=== PATIENT | female | born 1970 | race Caucasian/White ===

== ENCOUNTER 2022-02-26 11:22 | Emergency (ER) | payer OTHER, SELFPAY ==
[2022-02-26 11:36] VITALS: BP 161/91; PULSE 73; RESP 14; TEMP 37.1; O2SAT 100
--- NOTE | 2022-02-26 11:45 | ED.FEMALEGU ---
HPI - Female Genitourinary General Chief complaint: Urogenital-Female Stated complaint: poss uti/bladder infect Time Seen by Provider: 02/26/22 11:45 Source: patient and RN notes reviewed Mode of arrival: ambulatory Limitations: no limitations History of Present Illness HPI Narrative: 51-year-old female presented for complaint of urinary frequency, suprapubic pressure, urgency. Onset this morning. She states she gets about 2 UTIs per year. She took Azo this morning. States she is not drinking much water. She denies nausea, vomiting, abdominal pain, flank pain, fevers or chills. Related Data Allergies Allergy/AdvReac Type Severity Reaction Status Date / Time codeine Allergy Severe Swelling Verified 02/26/22 11:44 of Lip/Tongue/Throat Review of Systems Review of Systems: CONSTITUTIONAL: Denies body aches, fever, chills, or sweats. CARDIOVASCULAR: Denies chest pain, palpitations, or edema. RESPIRATORY: Denies cough or dyspnea. GASTROINTESTINAL: Denies abdominal pain, nausea, vomiting, or diarrhea. GENITOURINARY: Reports dysuria, frequency, urgency, denies hematuria, flank pain SKIN: Denies rash, itching, or wounds. MUSCULOSKELETAL: Denies back pain or myalgia. PMFSH Comments At time of signature, I have reviewed and agree with nursing past medical, surgical, social and family history unless otherwise noted. Please see nursing chart for further information. There is no relevant family history pertinent to the presenting complaint Exam Narrative: GENERAL: Well-appearing and in no acute distress. CHEST: No respiratory distress. Clear to auscultation. HEART: Regular rate and rhythm. ABDOMEN: Soft, nontender, nondistended, normal active bowel sounds. No CVA tenderness MUSCULOSKELETAL: No bony tenderness. SKIN: Warm, dry, no rash. NEURO: No focal deficits. Alert and oriented x3. Gait steady. PSYCH: Normal affect. No signs of depression or anxiety. Course Course Emergency Course: Patient is aware of diagnosis, understands and agrees to treatment plan. Anticipatory guidance given. Patient agrees to follow-up as directed and is aware of reasons to seek care at the emergency department. Portions of this record may have been created with voice recognition software Level of Care: Express Care Visit Vital Signs Vital signs: Vital Signs Temperature 98.8 F 02/26/22 11:36 Pulse Rate 73 02/26/22 11:36 Respiratory Rate 14 02/26/22 11:36 Blood Pressure 161/91 H 02/26/22 11:36 Pulse Oximetry 100 02/26/22 11:36 Oxygen Delivery Room Air 02/26/22 11:36 Temperature 98.8 F 02/26/22 11:36 Pulse Rate 73 02/26/22 11:36 Respiratory Rate 14 02/26/22 11:36 Blood Pressure 161/91 H 02/26/22 11:36 Pulse Oximetry 100 02/26/22 11:36 Oxygen Delivery Room Air 02/26/22 11:36 Reviewed MDM - Female Genitourinary MDM Narrative Medical decision making narrative: urine reviewed with pt, abx prescribed. Stable condition and appropriate for outpt treatment. Differential Diagnosis Differential diagnosis: Likely urinary tract infection and cystitis Lab Data Labs: Urine Glucose Negative Reference Range: Negative Urine Bilirubin Negative Reference Range: Negative Urine Ketone Negative Reference Range: Negative Urine Specific [place] 1.020 Reference Range:1.001-1.035 Urine Blood 1+ Reference Range: Negative * * Urine pH 7.0 Reference Range: 5.0-9.0 Urine Protein Negative *
== END 2022-02-26 11:55 | disposition home or self-care (01) ==
PROVIDERS: Emergency Provider Nurse Practitioner Family
DX: N39.0 Urinary tract infection, site not specified (principal)
CPT/HCPCS: 81003; 87077; 87086; 87186; 99203; G0463

== ENCOUNTER 2022-03-26 19:09 | Emergency (ER) | payer OTHER, SELFPAY ==
[2022-03-26 19:17] VITALS: BP 158/106; PULSE 80; RESP 20; TEMP 37.3; O2SAT 100
--- NOTE | 2022-03-26 19:19 | ED.FEMALEGU ---
HPI - Female Genitourinary General Stated complaint: Poss uti Time Seen by Provider: 03/26/22 19:22 Source: patient and RN notes reviewed Mode of arrival: ambulatory Limitations: no limitations History of Present Illness HPI Narrative: 51-year-old female presents with concern for urinary tract infection. She reports this afternoon she began having sudden dysuria, frequency and urgency. She reports she took Azo this afternoon. She denies fever, body aches, chills, sweats, abdominal pain, nausea, vomiting. MD elicited complaint: UTI Related Data Allergies Allergy/AdvReac Type Severity Reaction Status Date / Time codeine Allergy Severe Swelling Verified 03/26/22 19:17 of Lip/Tongue/Throat Review of Systems Review of Systems: CONSTITUTIONAL: Denies malaise, chills, sweats, or fever. CARDIOVASCULAR: Denies chest pain, palpitations, or edema. RESPIRATORY: Denies cough or dyspnea. GASTROINTESTINAL: Denies abdominal pain, nausea, vomiting, diarrhea GENITOURINARY: Reports dysuria, frequency, urgency. Denies suprapubic pressure. Denies flank pain or hematuria. SKIN: Denies rash or itching. MUSCULOSKELETAL: Denies back pain or myalgia. All systems reviewed & are unremarkable except as noted in HPI and below PMFSH Comments At time of signature, agree with nursing past medical, surgical, social and family history. There is no relevant family history pertinent to the presenting complaint Exam Narrative: GENERAL: Well-appearing, well-nourished, and in no acute distress. HEAD: Normocephalic. EYES: PERRLA, conjunctivae clear. NECK: Supple. No lymphadenopathy CHEST: Clear to auscultation. No respiratory distress. HEART: Regular rate and rhythm. ABDOMEN: Soft, nontender upon palpation, nondistended, normal active bowel sounds, no palpable or pulsatile masses, no guarding. No CVA tenderness SKIN: Warm, dry, no rash. NEURO: Alert and oriented x3. PSYCH: Normal mood and affect Course Course Emergency Course: Patient is aware of diagnosis, understands and agrees to treatment plan. Anticipatory guidance given. Patient agrees to follow-up as directed and is aware of reasons to seek care at the emergency department. Portions of this record may have been created with voice recognition software Level of Care: Express Care Visit Vital Signs Vital signs: Vital Signs Temperature 99.2 F 03/26/22 19:17 Pulse Rate 80 07/08/22 19:17 Respiratory Rate 20 03/26/22 19:17 Blood Pressure 158/106 H 03/26/22 19:17 Pulse Oximetry 100 03/26/22 19:17 Oxygen Delivery Room Air 03/26/22 19:17 Temperature 99.2 F 03/26/22 19:17 Pulse Rate 80 03/26/22 19:17 Respiratory Rate 20 03/26/22 19:17 Blood Pressure 158/106 H 03/26/22 19:17 Pulse Oximetry 100 03/26/22 19:17 Oxygen Delivery Room Air 03/26/22 19:17 Reviewed. MDM - Female Genitourinary MDM Narrative Medical decision making narrative: Exam findings and UA show no acute concerns or changes; patient is non-toxic appearing and is in no distress. Patient is appropriate for outpatient treatment and follow-up. Differential Diagnosis Differential diagnosis: Likely urinary tract infection and cystitis Critical Care Time Critical Care Time Critical Care Time: No Discharge Plan Discharge Clinical Impression: UTI (urinary tract infection) Patient Disposition: Home, Self-Care Condition: Stable Instructions: Antibiotic Form, Urinary Tract Infection in Women (ED) Additional Instructions: We will send a urine culture to the lab; if the culture identifies an organism that the prescribed antibiotic will not treat, you will receive a phone call from an urgent care staff member and an appropriate antibiotic will be prescribed. -Your symptoms should begin to improve within a day of starting antibiotics. But you should finish all the antibiotic pills you get. Otherwise your infection might come back. -Also recommend: increase water intake. Forrest
== END 2022-03-26 19:35 | disposition home or self-care (01) ==
PROVIDERS: Emergency Provider Nurse Practitioner
DX: N39.0 Urinary tract infection, site not specified (principal)
CPT/HCPCS: 81003; 87077; 87086; 87186; 99213; G0463

== ENCOUNTER 2022-12-22 14:26 | Emergency (ER) | payer OTHER, SELFPAY ==
[2022-12-22 14:31] VITALS: BP 171/78; PULSE 86; RESP 16; TEMP 37.6; O2SAT 99
--- NOTE | 2022-12-22 14:31 | ED.URI ---
HPI - URI/Sore Throat General Chief Complaint: Upper Respiratory Infection Stated Complaint: cough/wheezing and aches Source: patient and RN notes reviewed History of Present Illness HPI Narrative: 52 yo F presents to urgent care with complaints of diarrhea, TREVIZO, sore throat, right ear pain, cough, wheezing, and chest congestion. Pt states her symptoms have been going on for 2 days. Pt reports chills and feeling hot but no fever that she knows of. Denies any vomiting. Pt has been taking OTC cold medicine with moderate relief. Related Data Allergies Allergy/AdvReac Type Severity Reaction Status Date / Time codeine Allergy Severe Swelling Verified 12/22/22 14:55 of Lip/Tongue/Throat Review of Systems Review of Systems: Pertinent positives and pertinent negatives per HPI. PMFSH Comments At the time of my signature, I reviewed and agree with the nursing past medical, surgical, social, and family history. There is no relevant family history pertinent to the patient complaint. Exam Narrative: GENERAL: This is a well-nourished, well-developed patient, in no apparent distress. HEAD: normocephalic, atraumatic. EYES: Sclera clear/white. Vision is grossly intact. EARS: External ears normal, auditory canals clear and without drainage. Hearing grossly intact. NOSE: External nose normal with no obvious nasal discharge, nares without redness, no rhinorrhea. THROAT: Mucous membranes moist, posterior pharynx clear. NECK: Neck supple, non-tender without lymphadenopathy, masses or thyromegaly. CARDIOVASCULAR: Regular rate and rhythm without murmurs, gallops, or rubs. RESPIRATORY: Mild wheezes noted in lower lobes. SKIN: warm, intact with no suspicious lesions or rash, good texture and turgor. NEURO: awake, alert, and oriented to person, place and time. There were no obvious focal neurologic abnormalities. Course Course Level of Care: Express Care Visit Vital Signs Vital signs: Vital Signs Temperature 99.6 F 12/22/22 14:31 Pulse Rate 86 12/22/22 14:31 Respiratory Rate 16 12/22/22 14:31 Blood Pressure 171/78 H 12/22/22 14:31 Pulse Oximetry 99 12/22/22 14:31 Oxygen Delivery Room Air 12/22/22 14:31 Temperature 99.6 F 12/22/22 14:31 Pulse Rate 86 12/22/22 14:31 Respiratory Rate 16 12/22/22 14:31 Blood Pressure 171/78 H 12/22/22 14:31 Pulse Oximetry 99 12/22/22 14:31 Oxygen Delivery Room Air 12/22/22 14:31 reviewed MDM - URI/Sore Throat MDM Narrative Medical decision making narrative: Viral illness may last between 7-21 days; antibiotics do not cure viral illness and are NOT recommended at this time. Also, recommend symptomatic treatment includes: rest, fluids, and increase humidity of the air at home. Recommend Acetaminophen as directed on the bottle to reduce fever, pain, headache. Please schedule a follow-up visit with your personal physician for further evaluation and treatment within 3-5days. If your symptoms persist, change or worsen significantly before you can contact your personal physician then please, without delay, go to the emergency department for further evaluation. You've been diagnosed with a viral illness that would not require antibiotics at this time. You may take Imodium for diarrhea. If you would like to eat food, you should follow the BRAT diet (bananas, rice, applesauce, and toast, or things of the like). If you develop any new or worsening symptoms, you should go to the emergency dept without hesitation. Follow up with your pain management physician in 2-5 days. Differential Diagnosis Differential diagnosis: Likely otitis media, viral infection and pharyngitis Lab Data Attestation: I reviewed the patient's lab results. Labs: Strep Screen Presumptive Negative *(Reference Range: Negative)* Critical Care Time Critical Care Time Critical Care Time: No Discharge Plan Discharge Clinical Impression: Viral in
== END 2022-12-22 15:30 | disposition home or self-care (01) ==
PROVIDERS: Emergency Provider Nurse Practitioner Family; PCP Family Medicine
DX: B34.9 Viral infection, unspecified (principal); Z20.822 Contact with and (suspected) exposure to COVID-19; Z86.16 Personal history of COVID-19
CPT/HCPCS: 87081; 87426; 87880; 99213; C9803; G0463

== ENCOUNTER 2024-07-17 18:42 | Emergency (ER) | payer OTHER, SELFPAY ==
[2024-07-17 19:16] VITALS: BP 155/83; PULSE 77; RESP 18; TEMP 36.7; O2SAT 99
[2024-07-17 20:10] LABS: EDUAAPPEAR Cloudy; EDUABILI Negative (Negative); EDUABLOOD Trace (Negative); EDUACOLOR1 Yellow; EDUAGLUCOSE Negative (Negative); EDUAKETONE Negative (Negative); EDUALEUKO Trace (Negative); EDUANITRATE Negative (Negative); EDUAPROTEIN Trace (Negative); EDUAUROBILI 0.2
--- NOTE | 2024-07-17 21:52 | ED.GENADULT ---
HPI - General Adult General Chief complaint: Urogenital-Female Stated complaint: UTI Time Seen by Provider: 07/17/24 19:24 Source: patient, RN notes reviewed and old records reviewed Mode of arrival: ambulatory Limitations: no limitations History of Present Illness HPI narrative: 54-year-old female to Express Care for complaint bladder pressure, urinary frequency, decreased amount of urinary output since yesterday morning. Patient endorses history of chronic UTIs. Patient states that urinary tract infection was 6 months ago. Patient resting comfortably in exam room in no acute distress. Related Data Allergies Allergy/AdvReac Type Severity Reaction Status Date / Time codeine Allergy Severe Swelling Verified 12/22/22 14:55 of Lip/Tongue/Throat Review of Systems Review of Systems: All systems reviewed & are unremarkable except as noted in HPI and below Constitutional: Constitutional: Reports no additional constitutional complaints Eyes: Eyes: Reports no additional eye complaints ENT: Reports system reviewed and no additional complaints, except as documented Cardiovascular: Cardiovascular: Reports no additional cardiovascular complaints, Denies chest pain and Denies dyspnea Respiratory: Respiratory: Reports no additional respiratory complaints, Denies cough and Denies dyspnea Genitourinary: Genitourinary: Reports as per HPI, Reports nocturia and Reports other ( Bladder pressure; decreased urinary output) Musculoskeletal: Musculoskeletal: Reports no additional musculoskeletal complaints Neurologic: Reports system reviewed and no additional complaints, except as documented Psychiatric: Psychiatric: Reports no additional psychiatric complaints PMFSH Comments At the time of my signature, I reviewed and agree with the nursing past medical, surgical, social, and family history. There is no relevant family history pertinent to the patient complaint. Exam Const: General: cooperative, comfortable, no acute distress, alert and well nourished Nutritional Appearance: well nourished Orientation/consciousness: patient oriented x3 Limitations: no limitations HENMT: Head: normal to inspection Ears: external ears normal Face/Nose/Sinus: Normal external nose present, Normal nares present, normal facial exam, No erythema and No edema Face and sinus: normal facial exam, no erythema and no edema Mouth: Yes Normal oral and palatal mucosa present Eyes: General: appearance normal, both eyes and all related structures Neck: Neck: normal visual inspection, full ROM and no meningeal signs Chest: Chest palpation & inspection: normal inspection of the chest Resp: Effort & Inspection: normal respiratory effort and able to speak in complete sentences Cardio: Jugular venous distension: no JVD Rate: regular rate : General: Yes no CVA tenderness Back/Spine/Pelvis: Cervical Spine: cervical ROM normal Skin: General skin exam: normal color, no rashes or lesions noted and turgor normal Neuro: General: patient oriented x3, gait normal, moves all extremities and no meningeal signs Speech: normal speech Gait exam (Neuro): Normal gait present Extrem: General: normal to inspection, full ROM and capillary refill normal Psych: Appearance: grossly normal and well kempt Course Course Emergency Course: Some parts of this dictation were generated by voice recognition software and may contain typographical and/or grammatical inaccuracies. Level of Care: Express Care Visit Vital Signs Vital signs: Vital Signs Temperature 36.7 C 07/17/24 19:16 Pulse Rate 77 07/17/24 19:16 Respiratory Rate 18 07/17/24 19:16 Blood Pressure 155/83 H 07/17/24 19:16 Pulse Oximetry 99 07/17/24 19:16 Oxygen Delivery Room Air 07/17/24 19:16 Temperature 36.7 C 07/17/24 19:16 Pulse Rate 77 07/17/24 19:16 Respiratory Rate 18 07/17/24 19:16 Blood Pressure 155/83 H 07/17/24 19:16 Pulse Oximetry 99 07/17/24 19:16 Oxygen Delivery Room Air 07/17/24 19:16 reviewed Medical Decision Making MDM Narrative Medical decision making narrative: 54-year-old female to Express Care for complaint bladder pressure, urinary frequency, decreased amount of urinary output since yesterday morning. Patient endorses history of chronic UTIs. Patient states that urinary tract infection was 6 months ago. Patient resting comfortably in exam room in no acute distress. Patient is sitting comfortably in exam room nontoxic in appearance. patient exam unremarkable. UA positive for UTI clinic. Culture sent Patient appropriate for outpatient treatment and follow-up. Discharge instructions reviewed with patient, as well as provided in writing per nursing staff. The instructions also include specific and strict return/GO TO THE ER as well as f/u information. All questions have been answered, and the patient deny any further questions with discharge and discharge plan. Some parts of this dictation were generated by voice recognition software and may contain typographical and/or grammatical inaccuracies. Differential Diagnosis Differential Diagnosis: urinary tract infection, acute cystitis, STI, yeast infection Vital Signs Vital Signs: Vital Signs Temperature 36.7 C 07/17/24 19:16 Pulse Rate 77 07/17/24 19:16 Respiratory Rate 18 07/17/24 19:16 Blood Pressure 155/83 H 07/17/24 19:16 Pulse Oximetry 99 07/17/24 19:16 Oxygen Delivery Room Air 07/17/24 19:16 Temperature 36.7 C 07/17/24 19:16 Pulse Rate 77 07/17/24 19:16 Respiratory Rate 18 07/17/24 19:16 Blood Pressure 155/83 H 07/17/24 19:16 Pulse Oximetry 99 07/17/24 19:16 Oxygen Delivery Room Air 07/17/24 19:16 Lab Data Labs: Lab Results 07/17/24 Range/Units 19:40 POC Urine Color Yellow POC Urine Clarity Cloudy POC Urine pH 6.0 POC Ur Specif [place] 1.030 POC Urine Protein Trace (Negative) POC Ur Glucose (UA) Negative (Negative) POC Urine Ketones Negative (Negative) POC Urine Blood Trace (Negative) POC Urine Nitrite Negative (Negative) POC Urine Bilirubin Negative (Negative) POC Urine Urobilinogen 0.2 POC U Leukocyte Esteras Trace (Negative) Discharge Plan Discharge Clinical Impression: Urinary tract infection Patient Disposition: Home, Self-Care Condition: Stable Instructions: Urinary Tract Infection in Women (DC) Additional Instructions: We will send a urine culture off to the lab; if the culture identifies an organism that the prescribed antibiotic will not treat, you will receive a phone call from an urgent care staff member and an appropriate antibiotic will be prescribed. -Your symptoms should begin to improve within a day of starting antibiotics. But you should finish all the antibiotic pills you get. Otherwise your infection might come back. -Also recommend: drink more fluid. It might help flush out germs, and it does no harm -Tylenol/ibuprofen as needed for pain -Follow-up with your primary care provider for urine recheck OR if your symptoms persist, change or worsen significantly before you can contact your personal physician then please, without delay, go to the emergency department for further evaluation. Prescriptions: New amoxicillin-pot clavulanate 875-125 mg tablet 1 tablet PO Q12H 7 Days Qty: 14 0RF amoxicillin-pot clavulanate 875-125 mg tablet 1 tablet PO Q12H 7 Days Qty: 14 0RF Follow-up/Referrals: PHYSICIAN,DECAL TRANSFERRER [Primary Care Provider] - Stand Alone Forms: Work/School Release IP
== END 2024-07-17 20:15 | disposition home or self-care (01) ==
PROVIDERS: Emergency Provider Nurse Practitioner Family
DX: N39.0 Urinary tract infection, site not specified (principal); Z86.16 Personal history of COVID-19
CPT/HCPCS: 81003; 87086; 99213; G0463

== ENCOUNTER 2024-08-11 14:39 | Emergency (ER) | payer OTHER, SELFPAY ==
[2024-08-11 14:43] VITALS: BP 180/82; PULSE 81; RESP 16; TEMP 36.4; O2SAT 99
--- NOTE | 2024-08-11 15:01 | ED_ITS ---
HPI - Female Genitourinary General Chief complaint: Urogenital-Female Stated complaint: Urinary Problem History of Present Illness HPI Narrative: Patient presents with urinary frequency and burning with urination. No flank pain no gross hematuria no back pain no pelvic pain no concern for STDs Related Data Home Medications Medication Instructions Recorded Confirmed No Home Medications 08/11/24 08/11/24 Allergies Allergy/AdvReac Type Severity Reaction Status Date / Time codeine Allergy Severe Swelling Verified 08/11/24 15:01 of Lip/Tongue/Throat Review of Systems Review of Systems: CONSTITUTIONAL: Denies fever, chills, or sweats. EYES: Denies visual changes, redness, or discharge. ENT: Denies rhinorrhea, congestion, sore throat, or otalgia. CARDIOVASCULAR: Denies chest pain, palpitations, or edema. RESPIRATORY: Denies cough or dyspnea. GASTROINTESTINAL: Denies abdominal pain, nausea, vomiting, or diarrhea. GENITOURINARY: Denies dysuria or hematuria. SKIN: Denies rash or itching. MUSCULOSKELETAL: Denies back pain, joint pain, or myalgia. NEUROLOGIC: Denies headache, numbness, or weakness. PSYCHIATRIC: Denies anxiety or depression. PMFSH Comments At time of signature, agree with nursing past medical, surgical, social and family history. There is no relevant family history pertinent to the presenting complaint Exam Narrative: GENERAL: Well-appearing, well-nourished, and in no acute distress. HEAD: Normocephalic, atraumatic. EYES: PERRLA and EOMI. ENT: Nares clear, no rhinorrhea or epistaxis. Mucous membranes moist. NECK: Supple. CHEST: Clear to auscultation. No respiratory distress. HEART: Regular rate and rhythm. No murmur heard. Normal peripheral pulses. ABDOMEN: Soft, nontender, nondistended, normal active bowel sounds. EXTREMITIES: Normal range of motion. No edema. SKIN: Warm, dry, no rash. NEURO: No focal deficits. Alert and oriented x3. Nico Coma Scale Eye Opening: Spontaneous 4 Nico Coma Scale Motor: Obeys Commands 6 Nico Coma Scale Verbal: Oriented 5 Nico Coma Scale Total 15 Course Course Level of Care: Express Care Visit Vital Signs Vital signs: Vital Signs Temperature 36.4 C L 08/11/24 14:43 Pulse Rate 81 08/11/24 14:43 Respiratory Rate 16 08/11/24 14:43 Blood Pressure 180/82 H 08/11/24 14:43 Pulse Oximetry 99 08/11/24 14:43 Oxygen Delivery Room Air 08/11/24 14:43 Temperature 36.4 C L 08/11/24 14:43 Pulse Rate 81 08/11/24 14:43 Respiratory Rate 16 08/11/24 14:43 Blood Pressure 180/82 H 08/11/24 14:43 Pulse Oximetry 99 08/11/24 14:43 Oxygen Delivery Room Air 08/11/24 14:43 Please MALLORIE schedule a followup visit with your personal physician for further evaluation and treatment. Including recheck and discussion of your blood pressure. If your symptoms persist, change or worsen significantly before you can contact your personal physician then please, without delay, go to the emergency department for further evaluation Reviewed today's urinalysis and passed urinary culture and discussed both were negative with patient. Discussed we will wait on antibiotic until cultures returned and if grows any bacteria we will call in place on antibiotic at that time. Encouraged patient to avoid caffeine and carbonated beverages increase fluids and to follow-up with PCP. Discharge Plan Discharge Clinical Impression: Cystitis, Dysuria Patient Disposition: Home, Self-Care Condition: Stable Instructions: Dysuria (ED) Additional Instructions: Push fluids water and juices avoid caffeine and carbonated beverages Today's urinalysis was negative we will culture urine and if it grows any bacteria will call and place you on antibiotic with the culture results. Follow-up with PCP in 7-10 days for re-evaluation If any new or worsening symptoms please go to ER immediately further evaluation treatment Prescriptions: No Action No Home Medications Follow-up/Referrals: PHYSICIAN,DIRECTOR MARKETING COMMUNICATIONS [Primary Care Provider] - Jeffrey Ramon MD [Physician] -
[2024-08-11 15:09] LABS: EDUAAPPEAR Cloudy; EDUABILI Negative (Negative); EDUABLOOD 1+ (Negative); EDUACOLOR1 Yellow; EDUAGLUCOSE Negative (Negative); EDUAKETONE Negative (Negative); EDUALEUKO 1+ (Negative); EDUANITRATE Negative (Negative); EDUAPH 5.5; EDUAPROTEIN Trace (Negative); EDUAUROBILI 0.2
== END 2024-08-11 15:18 | disposition home or self-care (01) ==
PROVIDERS: Emergency Provider Nurse Practitioner Family
DX: N30.90 Cystitis, unspecified without hematuria (principal); R30.0 Dysuria; Z86.16 Personal history of COVID-19
CPT/HCPCS: 81003; 87086; 99213; G0463

== ENCOUNTER 2024-12-01 12:03 | Emergency (ER) | payer OTHER, SELFPAY ==
--- OUTSIDE RECORDS SUMMARY | 2024-12-01 12:05 | XMS_ITS | Clinical Summary ---
Author Organization [address] Address [address] [place] [address] Care Team Providers Care Family Practitioner Name Role Phone No, Physician Primary Care Provider [phone] Allergies Active Allergy Reactions Criticality Noted Date Comments Codeine Swelling High 11/21/2017 vomiting Medications No known medications Active Problems No known active problems Surgical History Surgery Date Site/Laterality Comments SECTION Medical History Medical History Date Comments No pertinent past medical history Family History Medical History Relation Name Comments Diabetes Father No Known Problems Mother Relation Name Status Comments Father Alive Mother Alive Social History Tobacco Use Types Packs/Day Years Used Date Smoking Tobacco: Never Smokeless Tobacco: Never Personal Safety Answer Date Recorded Getting School Help Needed Not on file 12/01 Comments Unknown Sex and Gender Information Value Date Recorded Sex Assigned at Not on file 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 Gender Identity Not on file Sexual Orientation Not on file Obstetrics History Last Filed Vital Signs Vital Sign Reading Time Taken Comments Blood Pressure 126/76 07/06/2021 11:07 AM CDT Pulse 99 07/06/2021 11:07 AM CDT Temperature 36.9 C (98.5 F) 07/06/2021 11:07 AM CDT Respiratory Rate 20 07/06/2021 11:07 AM CDT Oxygen Saturation 99% 07/06/2021 11:07 AM CDT Inhaled Oxygen Concentration - - Weight 99.8 kg (220 lb) 07/06/2021 11:07 AM CDT Height 154.9 cm (5' 1 ) 07/06/2021 11:07 AM CDT Body Mass Index 41.57 07/06/2021 11:07 AM CDT Plan of Treatment Not on file Insurance [employer] [facility] HMO/PPO Address: [address] [address] Care Teams Family Practitioner Relationship Specialty Start Date End Date No, Physician PCP - General 07/06/21
--- OUTSIDE RECORDS SUMMARY | 2024-12-01 12:05 | XMS_ITS | Referral Summary ---
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 Name Role Phone No, Physician Primary Care Provider [phone] Allergies Active Allergy Reactions Criticality Noted Date Comments Codeine Swelling High 11/21/2017 vomiting Medications No known medications Active Problems No known active problems Social History Tobacco Use Types Packs/Day Years Used Date Smoking Tobacco: Never Smokeless Tobacco: Never Personal Safety Answer Date Recorded Getting School Help Needed Not on file 12/01 Comments Unknown Sex and Gender Information Value Date Recorded Sex Assigned at Not on file 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
--- OUTSIDE RECORDS SUMMARY | 2024-12-01 12:05 | XMS_ITS | Clinical Summary ---
Author Organization [facility] Address [address] [place] [address] Phone Care Team Providers Care Display Card Writer Name Role Phone GANESH LONG MD Primary Care Provider [phone] Reason for Visit and Chief Complaint * PHONE CALL Plan of Treatment No Plan of Treatment Recorded Assessments Includes: Assessments from this encounter No Assessments Recorded Medical Equipment - Implanted Devices Includes: Current Devices No Medical Equipment Recorded Medications Includes: Medications discussed during this encounter and other current Medications No Medications Taken Medications Administered Includes: Administered Medications from this encounter No Administered Medications Recorded Results Includes: Results discussed during this encounter No Results Recorded For Specified Dates History of Present Illness Includes: History of Present Illness from this encounter No History of Present Illness Recorded Social History No Social History Recorded - Smoking Status Unknown Medical History Includes: Medical History addressed during this encounter No Medical History Recorded Family History Includes: Family History addressed during this encounter No Family History Recorded Review of Systems Includes: Review of Systems from this encounter No Review of Systems Recorded Mental Status Includes: Mental Status from this encounter No Mental Status Recorded Functional Status Includes: Functional Status from this encounter No Functional Status Recorded Physical Exam Includes: Physical Exam from this encounter No Physical Exam Recorded Allergies Includes: Active Allergies No Known Allergies Encounters Encounter Provider Location Date Check-In Time Check-Out Time Diagnosis * PHONE CALL GANESH LONG MD 02/02/2021 4:09PM 11:59PM Insurance Includes: Active Insurance Policies Plan Name Member ID Group # Subscriber Relationship Effect tim Dates - [facility] [id number] ALVA DUFF Self Clinical Notes Includes: Clinical Notes from this encounter No Clinical Notes Recorded
--- OUTSIDE RECORDS SUMMARY | 2024-12-01 12:05 | XMS_ITS | Data Portability ---
Author Organization [place] [facility], Maikel Ortega [facility] Address [address] [place] [address] Assessment Encounter Date Assessment Date Assessment LastModified by Organization Details LastModified Time 04/21/2017 04/21/2017 Plantar fibromatosis L arch, central midfoot 1.5x 1.5cm HAV L Hammer toe L2, lifting Tinea pedis and xerosis PLantar feet abalettie Not available 04/21/2017 18:28:17 05/05/2017 05/05/2017 Plantar fibromatosis L arch, central midfoot 1.5x 1.5cm HAV L Hammer toe L2, lifting Tinea pedis and xerosis PLantar feet abalettie Not available 05/05/2017 18:40:10 12/03/2019 12/03/2019 Plantar fasciitis R equinus R heel bursitis R xerotic dermatitis plantar feet HISTORICAL: Plantar fibromatosis L arch, central midfoot 1.5x1.5cm HAV L Hammer toe L2, lifting Tinea pedis abalettie Not available 12/03/2019 15:48:40 12/20/2019 12/20/2019 Plantar fasciitis R equinus R heel bursitis R xerotic dermatitis plantar feet HISTORICAL: Plantar fibromatosis L arch, central midfoot 1.5x1.5cm HAV L Hammer toe L2, lifting Tinea pedis abalettie Not available 12/20/2019 17:05:26 Plan of Treatment Reminders Order Date Submit Date Provider Last Modified By Organization Details Last Modified Time Details Appointments None recorded. Lab None recorded. Referral None recorded. Procedures None recorded. Surgeries None recorded. Imaging None recorded. Medication Orders urea 39 % topical cream 2019 020 [facility][id number], [address], [place], [place], [id number], 0 15:43:22 meloxicam 15 mg tablet 2019 020 [facility] #[id number], [address], [place], [id number], 0 15:44:16 econazole nitrate 1 % topical cream [address] [facility] [place], [address], 0 15:14:05 urea 40 % topical cream [address] [facility] [place], [address], 0 15:14:16 econazole nitrate 1 % topical cream [address] [facility] [place], [address], 0 15:14:05 Patient TargetsNo targets recorded. Patient Instructions Encounter Date Encounter Id Patient Instructions Last Modified By Organization Details Last Modified Time 04/21/2017 [id number] hammer toe: care instructions Not available 06/20/2017 10:15:55 athlete's foot: care instructions abalettie Not available 04/21/2017 18:26:16 Discussed nodule on the bottom of the foot, etiology, prognosis and treatment options. The lesion may get bigger, stay the same or shrink away. When the area gets pressure or inflamed it can hurt. Arch supports, accomodative pads or elastic compression wraps can help to compress the lesion and relieve some pain. Intralesional injections of cortisone have found to give substantial relief of pain and help to shrink the lesion. This effect can be temporary or permanant. Even surgery can be necessary if the lesion persisits. At this time the patient {{refuses a cortisone shot agrees to a cortisone shot*}} today. {{H&P# H&P Examin ed, reviewed}}. She does not have any pain w it but it is quite significant, i have to mention it. Recommend wider shoes, softer shoes, stretchy material vamp, getting bunion spot stretched in shoe, Suggest budin splint, one toe to pull down the 2nd toe and act as a buttress so the bunion and hammer toe do not get worse. She is interested in that but we don't have any, should be delivered tomorrow. I discussed the foot infection, odor and complications. Explained it is likely to recurr or spread to family. I advised drying feet well after showering and applying spray antifungal like tinactin in shoes after wearing daily. Wearing socks of a cotton polyester blend helps to absorb moisture too. Rx {{Econzole* Clotr imazole Tolnaftat e Ertaczo Desenex }}. Use as directed and mix with urea. Examined, reviewed. Discussed dry skin and possible complications of itching and bleeding. Best time to apply lotion is after showering or soaking. Lotion should be applied BID for best results, consistently. Rx {{Urea* Lactic Acid Aquaphor Euc augustine}}. Fu 2 wk to check lump, also skin and dispense budin splint single toe abalettie Not available 04/21/2017 18:26:04 05/05/2017 [id number] hammer toe: care instructions Not available 06/20/2017 10:15:55 athlete's foot: care instructions Not available 06/20/2017 10:15:55 dc econazole use urea bid budin splint B, no bunion pain but the 2nd toes are overlapping L>R fibromatosis L is greatly improved, she cannot feel it but now much flatter come back prn pain or reoccurance of the fibromatosis abalettie Not available 05/05/2017 18:41:28 12/03/2019 [id number] was prescribed urea in 2017, she might have forgotten that it needs to be used 1-2 times daily to treat skin condition and prevent reoccurrence. It will come back rapidly wo the cream. Can get this on [facility] for a fairly inexpensive guadalupe. {{H&P Examined, reviewed*}}. I discussed heel pain & dispensed written educational handouts. Discussed etiology, prognosis and treatment options. I advised stretching the calf TID, arch support at all times and no barefoot. Rx {{Meloxicam* Napr oxen Ibuprofen __ }}. I discussed NSAID complication and benefits. Discussed possible need for PT, cortisone shots, casts, MRI, night splints or even surgery. fu 2 wk abalettie Not available 12/03/2019 15:49:56 12/20/2019 [id number] has a night splint and arch band Examined, reviewed. Discussed heel pain and treatment options. Continue {{Naproxen Meloxi cam* Ibuprofen}} until there is no pain in the heel for 3 days. Recommend cortisone shot. Pt {{refuses bc she does not feel like the pain warrants one# agrees refus es}}. Continue stretching TID and arch support at all times. Fu 3 wk or may cancel if fine. abalettie Not available 12/20/2019 17:16:18 Reason for Referral None Reported. Problems No Known Problems Procedures Surgical History Date Name Laterality Status Provider Name and Address Organization Details Recorded Time 0 58904 Est. 20-29 min completed [facility] 12/20/2019 17:16:44 0 L4397- Posterior Night Splint completed [facility] 12/03/2019 15:48:05 0 00294 Est. 20-29 min completed [facility] 12/03/2019 15:23:51 0 03716 Xray 2v Heel completed [facility] 12/03/2019 15:25:16 7 66853 Est. 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 Procedure Notes None recorded. Medical Equipment None Reported. Allergies Allergen ID Allergen Name Allergen Category Reaction Reaction Severity Criticality Documentation Date Start Date Code Code System Note Provider Name and Address Organization Details Recorded Time 26171 codeine medicatio n vomiting severe Not available 04/21/20172004 2670 RxNorm Not Available Not Available Not Available 28529 aspirin medicatio n Not available Not available Not available 12/03/2019 1191 RxNorm Not Available Not Available Not Available Medications Name Sig Start Date Stop Date Status Note LastModified by Organization Details LastModified Time benzonatate 200 mg capsule TAKE 1 CAPSULE BY MOUTH THREE TIMES DAILY NEEDED FOR COUGH 12/02 completed Not Available Not Available Not Available urea 40 % topical cream apply bid 12/02 completed Not Available Not Available Not Available meloxicam 15 mg tablet TK 1 T PO QD active Not Available Not Available No t Available ofloxacin 0.3 % ear drops INSTILL 5 DROPS INTO RIGHT EAR TWICE DAILY FOR 5 DAYS 12/02 completed Not Available Not Available Not Available econazole nitrate 1 % topical cream apply bid 12/02 completed Not Available Not Available Not Available ibuprofen 600 mg tablet 12/02 completed Not Available Not Available Not Available albuterol sulfate HFA 90 mcg/actuati on aerosol inhaler INHALE 2 PUFFS BY MOUTH EVERY 6 HOURS NEEDED FOR SHORTNESS OF BREATH WHEEZING OR COUGH 12/02 completed Not Available Not Available Not Available urea 39 % topical cream Apply 2 g twice a day by topical route. 2019 active Not Available Not Available Not Avai lable Vitals Date Recorded Body weight Body mass index (BMI) Body height Provider Name and Address Organization Details Last Updated DateTime 04/21/2017 11659.47 g 36.6 kg/m2 157.48 cm MILTON ALVARENGA [facility] 04/21/2017 17:37:59 Date Recorded Body height Provider Name an d Address Organization Details Last Updated DateTime 05/05/2017 157.48 cm Akanksha Craig [place] [facility] 05/05/2017 18:29:23 Date Recorded Body height Body mass index (BMI) Body weight Provider Name and Address Organization Details Last Updated DateTime 12/03/2019 152.4 cm 41 kg/m2 40837.4 g MILTON ALVARENGA [place] [facility] 12/03/2019 15:13:50 Date Recorded Body height Provider Name an d Address Organization Details Last Updated DateTime 12/20/2019 152.4 cm Karlee Peng [place] [facility] 12/20/2019 17:02:29 Social History Question Answer Notes LastModified by [employer] Details LastModified Time Tobacco Smoking Status Never Smoker MILTON LYLE [place], [place] [facility] 04/21/2017 17:36:25 What Is Your Level Of Alcohol Consumption? 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 No Information not available 04/21/2017 Sex: Unknown Functional Status Question Answer Note LastModified by [employer] Vital Records Details LastModified Time What is your exercise level? Occasional Information not available 04/21/2017 Mental Status None recorded. Family History Relationship Description Onset Age of this Age Resolved Age Notes LastModified by Organization Details LastModified Time Father Diabetes mellitus Not available 2016 17:36:13 Medical History Condition Response HIV or AIDS N Coronary Artery Disease N Seizure Disorder N Gout N High Blood Pressure N Menopause N Lung Condition N Depression N Pacemaker N Sciatica N Anxiety Disorder N Urinary Tract Infections Y Arthritis N Ear Problems N Cancer N Stroke N Eye Problems N Stomach Problems N High Cholesterol N Liver Disease N Rheumatoid Arthritis N Rash N Kidney Disease N Tuberculosis or TB N Heart Problems N Ulcers on Legs or Feet N Clot in Lung or Pulmonary Embolism N Migraines N Phlebitis or Venous Blood Clot N Anemia N Back Pain N Neurologic Disease N Heart Attack ([place]) N Diabetes N Bleeding Disorder N Abuse of Alcohol or Drugs N Back injury N Dementia N Peripheral Vascular Disease N Sinus Conditions Y Thyroid Disorder N Broken Bone N Hepatitis N Heart Disease N Osteoporosis N Gynecological HistoryNo gynecological history recorded. Obstetrics History GPAL:G 0 P 0 0 0 0 Past Encounters Encounter ID Performer Location Encounter Start Date Encounter Closed Date Diagnosis/Indication Diagnosis SNOMED-CT Code Diagnosis ICD10 Code Diagnosis Note [id number] Joanne Quach [address] [address] 04/21/2017 17:35:27 04/21/2017 18:10:58 Dermatitis 902728459 L30.9 Tinea pedis 0737310 B35. 3 Plantar fa scial fibromatosis 43393580 M72.2 Acquired h allux valgus 83631776 M20.12 Hammer toe 905722308 M20 .42 Pain in left foot 769252 9797 02865 M79.672 [id number] Joanne [address] [address] 05/05/2017 18:23:39 05/06/2017 09:22:50 Plantar fascial fibromatosis 94390714 M72.2 Dermatitis 152026843 L30 .9 Tinea pedis 5780969 B35. 3 Acquired h allux valgus 80802525 M20.12 Hammer toe 076554706 M20 .42 Pain in left foot 998899 7763 88525 M79.672 [id number] Joanne [address] [address] 12/03/2019 15:05:44 12/03/2019 15:42:39 Dermatitis 929887616 L30.9 Plantar fa sciitis of right foot 2065780153 7077090 M72.2 Equinus co ntracture of the ankle 841290729 M24.571 Pain in right foot 65036 54477 43378 M79.[id number] [address] 12/20/2019 17:00:00 12/20/2019 17:12:00 Plantar fasciitis of right foot 6791360557 0362563 M72.2 Equinus co ntracture of the ankle 268319538 M24.571 Pain in right foot 79908 65297 91184 M79.671 Health Concerns Section Related Observation LastModified by Organization Detai ls LastModified Time None Recorded Concern Status LastModified by Organization Details LastModified Time None Recorded Advance Directives Directive None Recorded Payers Encounter Date Sequence Insurance Name Policy Number Policy Quach Covered Member ID Quach Member ID Guarantor Name 04/21/2017 1 [facility] [id number] Amina Leo [id number] Amina Leo 05/05/2017 1 [facility] [id number] Amina Leo [id number] Amina Leo 12/03/2019 1 [employer] - DOS PRIOR TO 2024 (PPO) Amina Leo [id number] TREVIZO Amina Leo 12/20/2019 1 [employer] - DOS PRIOR TO 2024 (PPO) Amina Leo [id number] TREVIZO Amina Leo Notes Date Note Type Note Provider Name and Address Organization Details Recorded Time 04/21/2017 text/html Foot Pain--[facility].Location: left midfoot at the arch (has a lump the size of a dime in the center of her arch.) Quality:aching; sharp; worsening Severity:moderate Duration:3 weeks Context:gradual Alleviating Factors:sitting; rest; not putting full weight it Aggravating Factors:standing; walking; weightbearing; the more she walks the bigger it gets Associated Symptoms:swelling;a jolly Previous Surgery:none Prior Imaging:none Previous Treatments:noneNote s:She has hard dry skin on her feet that has been there forever . She has no pain from her bunion or hammer toe L. Joanne mckinnon [facility] [employer] [facility] 06/20/2017 09:50:41 05/05/2017 text/html Foot Pain--[facility]patient.Location: left midfoot at the arch (has a lump the size of a dime in the center of her arch.) Quality:aching; sharp; worsening Severity:moderate Duration:3 weeks Context:gradual Alleviating Factors:sitting; rest; not putting full weight it Aggravating Factors:standing; walking; weightbearing; the more she walks the bigger it gets Associated Symptoms:swelling;a jolly Previous Surgery:none Prior Imaging:none Previous Treatments:noneNote s:She has hard dry skin on her feet that has been there forever . She has no pain from her bunion or hammer toe L. Joanne mckinnon [facility] [employer] [facility] 06/20/2017 10:02:03 12/03/2019 text/html Foot Pain--[facility].Location: right midfoot at the arch; right bottom of heel Quality:aching; sharp; occurs: frequently; worsening Severity:moderate Duration:1.5 months Timing:daytime when active walking; getting out of bed in the morning; all day long Context:gradual Alleviating Factors:sitting; rest; not putting full weight it; Ibuprofen Aggravating Factors:standing; walking; weightbearing; getting out of bed in the morning can be horrible olman after being on her feet a long time the day before Associated Symptoms:swelling(a t the end of the day);aching Previous Surgery:none Prior Imaging:none Previous Treatments:noneNote s: Present today c/o R foot pain NADINE [facility] 12/03/2019 15:50:47 12/20/2019 text/html Foot Pain--[facility].Location: right midfoot at the arch; right bottom of heel Quality:aching; sharp; occurs: occasionally; improving Severity:mild Duration:2 months; continuous since onset Timing:daytime when active walking; getting out of bed in the morning (no longer hurts); all day long Context:gradual Alleviating Factors:sitting; Meloxicam; arch supports OTC (arch band); night splint really helps Aggravating Factors:standing; walking; weightbearing Associated Symptoms:denies weakness, limping, tingling, swelling, or color changes Previous Surgery:none Prior Imaging:x ray Previous Treatments:helped significantlyNotes: Present today c/o R foot heel pain has two week meloxicam left wearing elastic arch band daily NADINE [facility] 12/20/2019 17:17:07 OBGyn Episode No OBEpisode recorded.
--- OUTSIDE RECORDS SUMMARY | 2024-12-01 12:05 | XMS_ITS | Clinical Summary ---
Author Organization [facility] Address [address] [place] [address] Phone Care Team Providers Care Test Preparation Tutor Name Role Phone ETHAN OHFFMAN, GANESH Waterman Primary Care Provider Reason for Visit and Chief Complaint The Chief Complaint is: WWE.. having irregular cycle with clots Plan of Treatment - Follow-up visit 1 year or as needed - Last Documented On 01/05/2021 9:38AM ; [facility] She will let us know if she has other problems in the meantime. - Last Documented On 01/05/2021 9:38AM ; [facility] Pending Tests Order Diagnosis Results Due Ordering P roaide Radiology @ other - *MAMMOGRAPHY SCREENING MAMMOGRAM Encntr screen mammogram for malignant neoplasm of breast 01/19/21 GANESH LONG MD Last Documented On 2 2:11PM ; [facility] Instructions to patient Instructions for patient : B reast Self Exam discussed Last Documented On 1 9:19AM ; [facility] Education and Decision Aids were provided during visit for: STD screening offered and de clined Last Documented On 1 9:19AM ; [facility] Bone Mineral Density Screeni ng guidelines reviewed Last Documented On 1 9:19AM ; [facility] Patient Education: Daily rich cium and vitamin D Last Documented On 1 9:19AM ; [facility] Patient Education: weight be aring exercise Last Documented On 1 9:19AM ; [facility] Colonoscopy screening guidel mendez discussed Last Documented On 1 9:19AM ; [facility] Assessments Includes: Assessments from this encounter Findings - Fibrocystic disease of breast - Last Documented On 01/05/2021 9:38AM ; [facility] - NORMAL FEMALE EXAM - Last Documented On 01/05/2021 9:38AM ; [facility] - Screening Malig. Neoplasm Rectum - Last Documented On 01/05/2021 9:38AM ; [facility] Instructions Includes: Instructions from this encounter Instructions to patient Instructions for patient : B reast Self Exam discussed Last Documented On 9:19AM ; [facility] Education and Decision Aids were provided during visit for: STD screening offered and de clined Last Documented On 9:19AM ; [facility] Bone Mineral Density Screeni ng guidelines reviewed Last Documented On 9:19AM ; [facility] Patient Education: Daily rich cium and vitamin D Last Documented On 9:19AM ; [facility] Patient Education: weight be aring exercise Last Documented On 9:19AM ; [facility] Colonoscopy screening guidel mendez discussed Last Documented On 9:19AM ; [facility] Medical Equipment - Implanted Devices Includes: Current Devices No Medical Equipment Recorded Medications Includes: Medications discussed during this encounter and other current Medications No Medications Taken Medications Administered Includes: Administered Medications from this encounter No Administered Medications Recorded Vital Signs Includes: Vital Signs from this encounter Vital Name 01/05/2021 08:59A Blood Pressure Sitting (mmHg) 140/82 Temp-Oral (F) 97 Height (in) 61 Weight (lb) 225 Body Mass Index (kg/m2) 42.5 Body Surface Area (m2) 2.0 Last Documented: On 01/05/2021 9:03AM ; [facility] Results Includes: Results discussed during this encounter No Results Recorded For Specified Dates History of Present Illness Includes: History of Present Illness from this encounter TYSON DUFF is a 50 year old female. - Primary Care Provider: none. - Age at menarche 13 - Date of last menstruation 11/24/2020 - Number of days between periods 5 - Abnormal menstrual flow heavy flow heavy menstrual flow - Menstrual symptoms Mild menstrual cramping Pt reports missing oct 2020 period and then the following month she had a long flow. Started 11/24/20 and lasted till yesterday. In her heaviest 24 hours she needed 4 items per 24 hours for each of 7 days of the almost 6 week flow. Most days she needed 2-3 items. She needed midol for every 4 hours for the first 4 weeks. This has never happened before Social History Description Last Updated control is being practiced Tubal L igation april 13 2005 01/05/2021 Last Documented On 1 9:38AM ; [facility] Exercising regularly 01/05/2021 Last Documented On 1 9:38AM ; [facility] Current nonsmoker 01/05/2021 Last Documented On 1 9:38AM ; [facility] control is not practiced Last Documented On 1 9:38AM ; [facility] Has not used injectable drugs 01/05/2021 Last Documented On 1 9:38AM ; [facility] Has sex with males only 01/05/2021 Last Documented On 1 9:38AM ; [facility] Have you ever had sex (vaginal or penis in anus or rectum)? 01/05/2021 Last Documented On 1 9:38AM ; [facility] Never a smoker 01/05/2021 Last Documented On 1 9:38AM ; [facility] No consumption of alcohol 01/05/2021 Last Documented On 1 9:38AM ; [facility] No drug use by a sexual partner 01/06/20 Last Documented On 1 9:38AM ; [facility] Not using drugs 01/05/2021 Last Documented On 1 9:38AM ; [facility] Partner has not had a STD in the past ye ar 01/05/2021 Last Documented On 1 9:38AM ; [facility] Patient does not report having sex when she didn't want to 01/05/2021 Last Documented On 1 9:38AM ; [facility] Patient has not had sex unde r the influence of alcohol or drugs in the last year 01/05/2021 Last Documented On 1 9:38AM ; [facility] Sexual partner has not had o ther partners while in relationship with patient 01/05/2021 Last Documented On 1 9:38AM ; [facility] Sexual partner has not had sex with pros titutes 01/05/2021 Last Documented On 1 9:38AM ; [facility] Sexually active with partners in the las t year 01/05/2021 Last Documented On 1 9:38AM ; [facility] Tubal ligation as control 01/06/20 21 Last Documented On 1 9:38AM ; [facility] Smoking Status Unknown Procedures and Surgical History Includes: Procedures from this encounter Procedures Code Diagnosis Performing Provider Service L ocation Service Date discharge medications reconciled with current medication list 1111F Last Documented On 1 8:58AM ; [facility] review of medications documented 1160F Last Documented On 1 8:58AM ; [facility] Clinical summary provided to patient Last Documented On 1 9:19AM ; [facility] no mammogram was performed never had one Last Documented On 1 9:04AM ; [facility] cervical Pap smear 03/2005 06473 Last Documented On 1 8:57AM ; [facility] cervical Pap smear 47586 Last Documented On 1 9:19AM ; [facility] history of cervical Pap smear 2004 48537 Last Documented On 1 8:59AM ; [facility] vaginal Pap smear 27587 Last Documented On 1 9:19AM ; [facility] FIT Test-Fecal Occult negative 86319 Last Documented On 1 9:19AM ; [facility] Medical History Includes: Medical History addressed during this encounter Description Last Updated # 2 Hours in labor: 10 hours ; #21 March 2005 and was repeat section with tubal ligation at [facility] 01/05/2021 Last Documented On 1 9:38AM ; [facility] 3 01/05/2021 Last Documented On 1 9:38AM ; [facility] Last pap smear date 200401/05/2021 Last Documented On 1 9:38AM ; [facility] Para 3 01/05/2021 Last Documented On 1 9:38AM ; [facility] Result: normal 01/05/2021 Last Documented On 1 9:38AM ; [facility] LMP: 11/24/2020 01/05/2021 Last Documented On 1 9:38AM ; [facility] # 1 Anesthesia: Emergency C Section 12/18 Last Documented On 1 9:38AM ; [facility] # 1 Delivery date: 01/27/1997 01/05/2021 Last Documented On 1 9:38AM ; [facility] # 1 Hours in labor 18 01/05/2021 Last Documented On 1 9:38AM ; [facility] # 1 Sex: Male 01/05/2021 Last Documented On 1 9:38AM ; [facility] # 1 type delivery: C section 01/05/2021 Last Documented On 1 9:38AM ; [facility] # 1 Weeks: 40 01/05/2021 Last Documented On 1 9:38AM ; [facility] # 1 Weight 8 11 01/05/2021 Last Documented On 1 9:38AM ; [facility] # 2 type delivery: Vaginal 01/05/2021 Last Documented On 1 9:38AM ; [facility] # 2 Anesthesia: Epidural 01/05/2021 Last Documented On 1 9:38AM ; [facility] # 2 Complications: Non 01/05/2021 Last Documented On 1 9:38AM ; [facility] # 2 Delivery date: 02/02/1999 01/05/2021 Last Documented On 1 9:38AM ; [facility] # 2 Sex: Female 01/05/2021 Last Documented On 1 9:38AM ; [facility] # 2 Weeks: 40 01/05/2021 Last Documented On 1 9:38AM ; [facility] # 2 Weight: 8 7 01/05/2021 Last Documented On 1 9:38AM ; [facility] #1 Complications None 01/05/2021 Last Documented On 1 9:38AM ; [facility] An HIV test was performed 01/05/2021 Last Documented On 1 9:38AM ; [facility] Elective (s) 0 01/05/2021 Last Documented On 1 9:38AM ; [facility] Never uses condoms with anal sex 021 Last Documented On 1 9:38AM ; [facility] No of miscarriages: 0 01/05/2021 Last Documented On 1 9:38AM ; [facility] No previous STD 01/05/2021 Last Documented On 1 9:38AM ; [facility] No. of Pregnancies: 3 01/05/2021 Last Documented On 1 9:38AM ; [facility] Please list all surgeries None 1 Last Documented On 1 9:38AM ; [facility] Previous live (s) 3 01/05/2021 Last Documented On 1 9:38AM ; [facility] Previous premature delivery(s) 0 021 Last Documented On 1 9:38AM ; [facility] Recent immunization for flu 06/2021 Last Documented On 1 9:38AM ; [facility] Family History Includes: Family History addressed during this encounter Description Last Updated Paternal history of Diabetes 01/05/2021 Last Documented On 1 9:38AM ; [facility] Review of Systems Includes: Review of Systems from this encounter Gastrointestinal: No nausea, no vomiting, and no hematochezia. Genitourinary: No change in urinary frequency and no feelings of urinary urgency. No urinary loss of control and no incontinence. No dysuria, no stress incontinence, does not feel like bladder is falling out, no vaginal itching or burning, and no vaginal pain during intercourse. No vaginal dryness and no unexplained vaginal bleeding. Musculoskeletal: No arthralgias and no localized joint swelling. Psychological: No anxiety, no depression, and no sleep disturbances. Mental Status Includes: Mental Status from this encounter Description No anxiety Functional Status Includes: Functional Status from this encounter No Functional Status Recorded Physical Exam Includes: Physical Exam from this encounter Allergies Includes: Active Allergies No Known Allergies Encounters Encounter Provider Location Date Check-In Time Check-Out Time Diagnosis WELL WOMAN - NEW PATIENT GANESH LONG MD [facility] 01/06/20 21 8:56AM 9:41AM Breast Fibrocystic Disease,Screeni ng Malig. Neoplasm Rectum,Normal Female Exam Insurance Includes: Active Insurance Policies Plan Name Member ID Group # Subscriber Relationship Effect tim Dates 1 - [facility] [id number] ALVA DUFF Self Clinical Notes Includes: Clinical Notes from this encounter No Clinical Notes Recorded
--- OUTSIDE RECORDS SUMMARY | 2024-12-01 12:05 | XMS_ITS | Clinical Summary ---
Author Organization [facility] Address [address] [place] [address] Phone Care Team Providers Care Cable Inspector Name Role Phone GANESH LONG MD Primary Care Provider [phone] Reason for Visit and Chief Complaint [Patient Encounter] Plan of Treatment No Plan of Treatment [...] Encounters Encounter Provider Location Date Check-In Time Check- Out Time Diagnosis [Patient Encounter] GANESH LONG MD [facility] 2 10:08AM 11:59PM Insurance Includes: Active Insurance Policies Plan Name Member ID Group # Subscriber Relationship Effect tim Dates 1 - [facility] [id number] ALVA DUFF Self Clinical Notes Includes: Clinical Notes from this encounter No Clinical Notes Recorded
--- OUTSIDE RECORDS SUMMARY | 2024-12-01 12:06 | XMS_ITS | Patient Health Summary ---
Author Organization [facility] Address [address] [place] [address] Care Team Providers Care Order Builder Name Role Phone Unavailable Primary Care Provider Unavailabl e Note from [facility],non-owned Affiliates and Associated Physician Practices is amultiple site organization consisting of ambulatory clinics and hospital sitesin [place], [place], [place] and [place]. This disclosure is being madepursuant to the Care Everywhere program and may not contain all information available regarding this patient. Last updated 18.[facility] Allergies * Aspirin(Rash) -Medium Criticality * Codeine(Swelling) -High Criticality Medications * Be aware that medications may not be up to date on this document. Alwaysverify current medications with the patient. * Urea 39 % 2 g Active Problems No known active problems Social History Tobacco Use Types Packs/Day Years Used Date Smoking Tobacco: Never Smokeless Tobacco: Never Sex and Gender Information Value Date Recorded Sex Assigned at Not on file Gender Identity Not on file Sexual Orientation Not on file Last Filed Vital Signs Vital Sign Reading Time Taken Comments Blood Pressure 126/70 07/20/2021 6:34 PM CDT Pulse 98 07/20/2021 6:34 PM CDT Temperature 36.7 C (98 F) 07/20/2021 6:34 PM CDT Respiratory Rate 18 07/20/2021 6:34 PM CDT Oxygen Saturation 99% 07/20/2021 6:34 PM CDT Inhaled Oxygen Concentration - - Weight 97.5 kg (215 lb) 07/20/2021 6:34 PM CDT Height 154.9 cm (5' 1 ) 07/20/2021 6:34 PM CDT Body Mass Index 40.62 07/20/2021 6:34 PM CDT Procedures * URINALYSIS AUTO - POINT OF CARE (AMB) STL(Performed 07/20/2021) Performed for Urinary tract infection without hematuria, site unspecified Results * URINALYSIS AUTO - POINT OF CARE (AMB) STL (07/20/2021 6:40 PM CDT) Clarity UA POCT clear [facility] Color UA POCT yellow [facility] Leukocyte UA 2 Negative [facility] Nitrite UA POCT neg Negative [facility] Urobilinogen UA 0.2 0.1 - 1.0 [facility] Protein UA POCT 1 Negative [facility] pH UA 6.5 5.0 - 8.0 pH units [facility] Blood UA neg Negative [facility] Specific [place] UA POCT 1.010 1.002 - 1.030 [facility] Ketone UA neg Negative [facility] Bilirubin UA POCT neg Negative [facility] Glucose UA neg Negative [facility] Expiration Date 12/30/22 [facility] Lot # [id number] [facility] QC Verified Yes Yes [facility] Urine URINE / Unknown 07/20/2021 6 :40 PM CDT Ronnie To APRN-DIRECTOR PART LAB - POINT OF CARE ORDERABLES [facility] [address] [place] [address], [facility] [phone]
--- OUTSIDE RECORDS SUMMARY | 2024-12-01 12:06 | XMS_ITS | Clinical Summary ---
Author Organization [facility] Address [address] [place] [address] Phone Care Team Providers Care Loom Winder Tender Name Role Phone GANESH LONG MD Primary Care Provider [phone] Reason for Visit and Chief Complaint NO SHOW Plan of Treatment No Plan of Treatment [...] Location Date Check-In Time Check-Out Time Diagnosis NO SHOW YEFRI JERNIGAN [facility] 05/18/2022 3:54PM 11:59PM Insurance Includes: Active Insurance Policies Plan Name Member ID Group # Subscriber Relationship Effect tim Dates 1 - [facility] [id number] ALVA DUFF Self Clinical Notes Includes: Clinical Notes from this encounter No Clinical Notes Recorded
--- OUTSIDE RECORDS SUMMARY | 2024-12-01 12:06 | XMS_ITS ---
Care Plan - [facility] Created on: December 01, 2024 ALVA DUFF : 1970 Sex: Female Author Organization [facility] Address [address] [place] [address] Phone Care Team Providers Care Yoker Machine Operator Name Role Phone ETHAN HOFFMAN, GANESH Waterman Primary Care Provider
--- OUTSIDE RECORDS SUMMARY | 2024-12-01 12:06 | XMS_ITS | Clinical Summary ---
Author Organization [facility] Address [address] [place] [address] Care Team Providers Care Fingerprinter Name Role Phone Unavailable Primary Care Provider Unavailabl e Source Comments [facility],non-owned Affiliates and Associated Physician Practices is amultiple site organization consisting of ambulatory clinics and hospital sitesin [place], [place], [place] and [place]. This disclosure is being madepursuant to the Care Everywhere program and may not contain all information available regarding this patient. Last updated 18.[facility] Allergies Active Allergy Reactions Criticality Noted Date Comments Aspirin Rash Medium 07/20/2021 Codeine Swelling High 11/21/2017 vomiting Medications * Be aware that medications may not be up to date on this document. Alwaysverify current medications with the patient. Medication Sig Dispensed Refills Start Date End Date Status Urea 39 % 2 g Active Active Problems No known active problems Family History Medical History Relation Name Comments Diabetes - Type 2 Father Relation Name Status Comments Father Alive Mother [...] Mass Index 40.62 07/20/2021 6:34 PM CDT Plan of Treatment Health Maintenance Due Date Last Done Comments COLOGUARD (AGES 45-75) - COL ON CA SCREENING 1971 COLON MONITORING 1971 COLONOSCOPY - COLON CA SCREENING 1971 CT COLONOGRAPHY - COLON CA SCREENING 1971 Colorectal Cancer Screening 1971 FIT - COLON CA SCREENING 1971 FLEX SIG - COLON CA SCREENING 1971 LIPID TESTING 1971 MAMMOGRAM 1971 PAP SMEAR 1971 HIV SCREENING 1986 HEPATITIS C SCREENING 03/30/1989 DTAP/TDAP/TD VACCINES (1 - Tdap) 1990 HEPATITIS B VACCINE (1 of 3 - 19+ 3-dose series) 1990 PNEUMOCOCCAL VACCINE 50+ (1 of 1 - PCV) 2021 ZOSTER VACCINE (1 of 2) 2021 SCREENING FOR DIABETES 07/20/2021 COVID-19 VACCINE (1 - 2023-2 5 season) 2024 INFLUENZA VACCINE (#1) 2024 DEPRESSION SCREENING 09/19/2024 HIB VACCINE Aged Out No longer eligi ble based on patient's age to complete this topic HPV VACCINE Aged Out No longer eligi ble based on patient's age to complete this topic MENINGOCOCCAL (Group B) VACC INE SHARED DECISION-MAKING Aged Out No longer eligibl e based on patient's age to complete this topic MENINGOCOCCAL GROUPS A/C/Y/W VACCINE Aged Out No longer eligible b ased on patient's age to complete this topic PNEUMOCOCCAL VACCINE Aged Out No long er eligible based on patient's age to complete this topic
--- OUTSIDE RECORDS SUMMARY | 2024-12-01 12:06 | XMS_ITS | Referral Summary ---
Author Organization [facility] Address [address] [place] [address] Care Team Providers Care Knowledge Analyst Name Role Phone Unavailable Primary Care Provider Unavailabl e Source Comments [facility],non-owned Affiliates and Associated Physician Practices is amultiple site organization consisting of ambulatory clinics and hospital sitesin [place], [place], [place] and [place]. This disclosure is being madepursuant to the Care Everywhere program and may not contain all information available regarding this patient. Last updated 18.[facility] Allergies Active Allergy Reactions Criticality Noted Date Comments Aspirin Rash Medium 07/20/2021 Codeine Swelling High 11/21/2017 vomiting Medications * Be aware that medications may not be up to date on this document. Alwaysverify current medications with the patient. Medication Sig Dispensed Refills Start Date End Date Status Urea 39 % 2 g Active Active Problems No known active problems Social [...] 07/20/2021 6:34 PM CDT Plan of Treatment Not on file
--- OUTSIDE RECORDS SUMMARY | 2024-12-01 12:06 | XMS_ITS ---
Author Organization [facility] Address [address] [place] [address] Phone Care Team Providers Care Executor Of Estate Name Role Phone GANESH LONG MD Primary Care Provider [phone] Plan of Treatment Findings Encounter Date She will let us know if she has other problems in the meantime WELL WOMAN - NEW PATIENT with GANESH LONG MD 01/05/2021 Last Documented On 1 9:38AM ; [facility] Ordered follow-up visit 1 ye ar or as needed WELL WOMAN - NEW PATIENT with GANESH LONG MD 01/05/2021 Last Documented On 1 9:38AM ; [facility] Instructions to patient Instructions for patient : B reast Self Exam discussed Last Documented On 1 9:19AM ; [facility] Education and Decision Aids were provided during visit for: STD screening offered and de clined Last Documented On 1 9:19AM ; [facility] Bone Mineral Density Screeni ng guidelines reviewed Last Documented On 1 9:19AM ; [facility] Patient Education: Daily rich cium and vitamin D Last Documented On 1 9:19AM ; [facility] Patient Education: weight be aring exercise Last Documented On 1 9:19AM ; [facility] Colonoscopy screening guidel mendez discussed Last Documented On 1 9:19AM ; [facility] Assessments Includes: Assessments for all patient encounters Findings Encounter Date Fibrocystic disease of breast WELL WOMAN - NEW PATIENT with GANESH LONG MD 01/05/2021 Last Documented On 1 9:38AM ; [facility] NORMAL FEMALE EXAM WELL WOMAN - NEW PATIENT with GANESH LONG MD 01/05/2021 Last Documented On 1 9:38AM ; [facility] Screening Malig. Neoplasm Rectum WELL WO MAN - NEW PATIENT with GANESH LONG MD 01/05/2021 Last Documented On 1 9:38AM ; [facility] Instructions Includes: Instructions for all patient encounters Instructions to patient Instructions for patient : B reast Self Exam discussed Last Documented On 1 9:19AM ; [facility] Education and Decision Aids were provided during visit for: STD screening offered and de clined Last Documented On 1 9:19AM ; [facility] Bone Mineral Density Screeni ng guidelines reviewed Last Documented On 1 9:19AM ; [facility] Patient Education: Daily rich cium and vitamin D Last Documented On 1 9:19AM ; [facility] Patient Education: weight be aring exercise Last Documented On 1 9:19AM ; [facility] Colonoscopy screening guidel mendez discussed Last Documented On 1 9:19AM ; [facility] Medical Equipment - Implanted Devices Includes: Current and historical Devices No Medical Equipment Recorded Medications Includes: Current and historical Medications No Medications Taken Medications Administered Includes: Administered Medications in patient's chart No Administered Medications Recorded Results Includes: Results from 12/02/2023 through 12/01/2024 No Results Recorded For Specified Dates History of Present Illness History of Present Illness not supported for this document type No History of Present Illness Recorded Social History Description Last Updated control is being practiced Tubal L igation april 13 2005 01/05/2021 Last Documented On 1 9:38AM ; [facility] Exercising regularly 01/05/2021 Last Documented On 1 9:38AM ; [facility] Current nonsmoker 01/05/2021 Last Documented On 1 9:38AM ; [facility] control is not practiced 1 Last Documented On 1 9:38AM ; [facility] Has not used injectable drugs 01/05/2021 Last Documented On 1 9:38AM ; [facility] Has sex with males only 01/05/2021 Last Documented On 1 9:38AM ; [facility] Have you ever had sex (vaginal or penis in anus or rectum)? 01/05/2021 Last Documented On 1 9:38AM ; [facility] Never a smoker 01/05/2021 Last Documented On 1 9:38AM ; [facility] No consumption of alcohol 01/05/2021 Last Documented On 1 9:38AM ; [facility] No drug use by a sexual partner 01/06/20 Last Documented On 1 9:38AM ; [facility] Not using drugs 01/05/2021 Last Documented On 1 9:38AM ; [facility] Partner has not had a STD in the past ye ar 01/05/2021 Last Documented On 1 9:38AM ; [facility] Patient does not report having sex when she didn't want to 01/05/2021 Last Documented On 1 9:38AM ; [facility] Patient has not had sex unde r the influence of alcohol or drugs in the last year 01/05/2021 Last Documented On 1 9:38AM ; [facility] Sexual partner has not had o ther partners while in relationship with patient 01/05/2021 Last Documented On 1 9:38AM ; [facility] Sexual partner has not had sex with pros titutes 01/05/2021 Last Documented On 1 9:38AM ; [facility] Sexually active with partners in the las t year 01/05/2021 Last Documented On 1 9:38AM ; [facility] Tubal ligation as control 01/06/20 Last Documented On 1 9:38AM ; [facility] Smoking Status Unknown Medical History Includes: Medical History in patient's chart Description Last Updated # 2 Hours in labor: 10 hours ; #21 March 2005 and was repeat section with tubal ligation at [facility] 01/05/2021 Last Documented On 1 9:38AM ; [facility] 3 01/05/2021 Last Documented On 1 9:38AM ; [facility] Last pap smear date 200401/05/2021 Last Documented On 1 9:38AM ; [facility] Para 3 01/05/2021 Last Documented On 1 9:38AM ; [facility] Result: normal 01/05/2021 Last Documented On 1 9:38AM ; [facility] LMP: 11/24/2020 01/05/2021 Last Documented On 1 9:38AM ; [facility] # 1 Anesthesia: Emergency C Section 12/18 Last Documented On 1 9:38AM ; [facility] # 1 Delivery date: 01/27/1997 01/05/2021 Last Documented On 1 9:38AM ; [facility] # 1 Hours in labor 18 01/05/2021 Last Documented On 1 9:38AM ; [facility] # 1 Sex: Male 01/05/2021 Last Documented On 1 9:38AM ; [facility] # 1 type delivery: C section 01/05/2021 Last Documented On 1 9:38AM ; [facility] # 1 Weeks: 40 01/05/2021 Last Documented On 1 9:38AM ; [facility] # 1 Weight 8 11 01/05/2021 Last Documented On 1 9:38AM ; [facility] # 2 type delivery: Vaginal 01/05/2021 Last Documented On 1 9:38AM ; [facility] # 2 Anesthesia: Epidural 01/05/2021 Last Documented On 1 9:38AM ; [facility] # 2 Complications: Non 01/05/2021 Last Documented On 1 9:38AM ; [facility] # 2 Delivery date: 02/02/1999 01/05/2021 Last Documented On 1 9:38AM ; [facility] # 2 Sex: Female 01/05/2021 Last Documented On 1 9:38AM ; [facility] # 2 Weeks: 40 01/05/2021 Last Documented On 1 9:38AM ; [facility] # 2 Weight: 8 7 01/05/2021 Last Documented On 1 9:38AM ; [facility] #1 Complications None 01/05/2021 Last Documented On 1 9:38AM ; [facility] An HIV test was performed 01/05/2021 Last Documented On 1 9:38AM ; [facility] Elective (s) 0 01/05/2021 Last Documented On 1 9:38AM ; [facility] Never uses condoms with anal sex 021 Last Documented On 1 9:38AM ; [facility] No of miscarriages: 0 01/05/2021 Last Documented On 1 9:38AM ; [facility] No previous STD 01/05/2021 Last Documented On 1 9:38AM ; [facility] No. of Pregnancies: 3 01/05/2021 Last Documented On 1 9:38AM ; [facility] Please list all surgeries None 1 Last Documented On 1 9:38AM ; [facility] Previous live (s) 3 01/05/2021 Last Documented On 1 9:38AM ; [facility] Previous premature delivery(s) 0 021 Last Documented On 1 9:38AM ; [facility] Recent immunization for flu 06/2021 Last Documented On 1 9:38AM ; [facility] Family History Includes: Family History in patient's chart Description Last Updated Paternal history of Diabetes 01/05/2021 Last Documented On 1 9:38AM ; [facility] Review of Systems Review of Systems not supported for this document type No Review of Systems Recorded Mental Status No Mental Status Recorded Functional Status No Functional Status Recorded Physical Exam Physical Exam not supported for this document type No Physical Exam Recorded Allergies Includes: Active, inactive, and resolved Allergies No Known Allergies Insurance Includes: Active Insurance Policies Plan Name Member ID Group # Subscriber Relationship Effect tim Dates 1 - [facility] [id number] ALVA DUFF Self Clinical Notes Includes: Signed Clinical Notes starting from 10/08/2022 No Clinical Notes Recorded
--- OUTSIDE RECORDS SUMMARY | 2024-12-01 12:08 | XMS_ITS | Clinical Summary ---
Author Organization [facility] Address [address] [place] [address] Phone Care Team Providers Care Porcelain Enamel Repairer Name Role Phone ETHAN HOFFMAN, GANESH Waterman Primary Care Provider Reason for Visit and Chief Complaint The Chief Complaint is: WWE.. having irregular cycle with clots Plan of Treatment - Follow-up visit 1 year or as needed - Last Documented On 01/05/2021 9:38AM ; [facility] She will let us know if she has other problems in the meantime. - Last Documented On 01/05/2021 9:38AM ; [facility] Pending Tests Order Diagnosis Results Due Ordering P roaide Radiology @ other - *MAMMOGRAPHY SCREENING MAMMOGRAM Encntr screen mammogram for malignant neoplasm of breast 01/19/21 GANESH LONG MD Last Documented On 2 2:11PM ; [facility] Instructions to patient Instructions for patient : B reast Self Exam discussed Last Documented On 1 9:19AM ; [facility] Education and Decision Aids were provided during visit for: STD screening offered and de clined Last Documented On 1 9:19AM ; [facility] Bone Mineral Density Screeni ng guidelines reviewed Last Documented On 1 9:19AM ; [facility] Patient Education: Daily rich cium and vitamin D Last Documented On 1 9:19AM ; [facility] Patient Education: weight be aring exercise Last Documented On 1 9:19AM ; [facility] Colonoscopy screening guidel mendez discussed Last Documented On 1 9:19AM ; [facility] Assessments Includes: Assessments from this encounter Findings - Fibrocystic disease of breast - Last Documented On 01/05/2021 9:38AM ; [facility] - NORMAL FEMALE EXAM - Last Documented On 01/05/2021 9:38AM ; [facility] - Screening Malig. Neoplasm Rectum - Last Documented On 01/05/2021 9:38AM ; [facility] Instructions Includes: Instructions from this encounter Instructions to patient Instructions for patient : B reast Self Exam discussed Last Documented On 9:19AM ; [facility] Education and Decision Aids were provided during visit for: STD screening offered and de clined Last Documented On 9:19AM ; [facility] Bone Mineral Density Screeni ng guidelines reviewed Last Documented On 9:19AM ; [facility] Patient Education: Daily rich cium and vitamin D Last Documented On 9:19AM ; [facility] Patient Education: weight be aring exercise Last Documented On 9:19AM ; [facility] Colonoscopy screening guidel mendez discussed Last Documented On 9:19AM ; [facility] Medical Equipment - Implanted Devices Includes: Current [...] 2.0 Last Documented: On 01/05/2021 9:03AM ; [facility] Results Includes: Results discussed during this encounter [...] 01/05/2021 Last Documented On 1 9:38AM ; [facility] Exercising regularly 01/05/2021 Last Documented On 1 9:38AM ; [facility] Current nonsmoker 01/05/2021 Last Documented On 1 9:38AM ; [facility] control is not practiced Last Documented On 1 9:38AM ; [facility] Has not used injectable drugs 01/05/2021 Last Documented On 1 9:38AM ; [facility] Has sex with males only 01/05/2021 Last Documented On 1 9:38AM ; [facility] Have you ever had sex (vaginal or penis in anus or rectum)? 01/05/2021 Last Documented On 1 9:38AM ; [facility] Never a smoker 01/05/2021 Last Documented On 1 9:38AM ; [facility] No consumption of alcohol 01/05/2021 Last Documented On 1 9:38AM ; [facility] No drug use by a sexual partner 01/06/20 Last Documented On 1 9:38AM ; [facility] Not using drugs 01/05/2021 Last Documented On 1 9:38AM ; [facility] Partner has not had a STD in the past ye ar 01/05/2021 Last Documented On 1 9:38AM ; [facility] Patient does not report having sex when she didn't want to 01/05/2021 Last Documented On 1 9:38AM ; [facility] Patient has not had sex unde r the influence of alcohol or drugs in the last year 01/05/2021 Last Documented On 1 9:38AM ; [facility] Sexual partner has not had o ther partners while in relationship with patient 01/05/2021 Last Documented On 1 9:38AM ; [facility] Sexual partner has not had sex with pros titutes 01/05/2021 Last Documented On 1 9:38AM ; [facility] Sexually active with partners in the las t year 01/05/2021 Last Documented On 1 9:38AM ; [facility] Tubal ligation as control 01/06/20 21 Last Documented On 1 9:38AM ; [facility] Smoking Status Unknown Procedures and Surgical History Includes: Procedures from this encounter Procedures Code Diagnosis Performing Provider Service L ocation Service Date discharge medications reconciled with current medication list 1111F Last Documented On 1 8:58AM ; [facility] review of medications documented 1160F Last Documented On 1 8:58AM ; [facility] Clinical summary provided to patient Last Documented On 1 9:19AM ; [facility] no mammogram was performed never had one Last Documented On 1 9:04AM ; [facility] cervical Pap smear 03/2005 22487 Last Documented On 1 8:57AM ; [facility] cervical Pap smear 79479 Last Documented On 1 9:19AM ; [facility] history of cervical Pap smear 2004 54095 Last Documented On 1 8:59AM ; [facility] vaginal Pap smear 22852 Last Documented On 1 9:19AM ; [facility] FIT Test-Fecal Occult negative 19346 Last Documented On 1 9:19AM ; [facility] Medical History Includes: Medical History addressed during this encounter Description Last Updated # 2 Hours in labor: 10 hours ; #21 March 2005 and was repeat section with tubal ligation at [facility] 01/05/2021 Last Documented On 1 9:38AM ; [facility] 3 01/05/2021 Last Documented On 1 9:38AM ; [facility] Last pap smear date 200401/05/2021 Last Documented On 1 9:38AM ; [facility] Para 3 01/05/2021 Last Documented On 1 9:38AM ; [facility] Result: normal 01/05/2021 Last Documented On 1 9:38AM ; [facility] LMP: 11/24/2020 01/05/2021 Last Documented On 1 9:38AM ; [facility] # 1 Anesthesia: Emergency C Section 12/18 Last Documented On 1 9:38AM ; [facility] # 1 Delivery date: 01/27/1997 01/05/2021 Last Documented On 1 9:38AM ; [facility] # 1 Hours in labor 18 01/05/2021 Last Documented On 1 9:38AM ; [facility] # 1 Sex: Male 01/05/2021 Last Documented On 1 9:38AM ; [facility] # 1 type delivery: C section 01/05/2021 Last Documented On 1 9:38AM ; [facility] # 1 Weeks: 40 01/05/2021 Last Documented On 1 9:38AM ; [facility] # 1 Weight 8 11 01/05/2021 Last Documented On 1 9:38AM ; [facility] # 2 type delivery: Vaginal 01/05/2021 Last Documented On 1 9:38AM ; [facility] # 2 Anesthesia: Epidural 01/05/2021 Last Documented On 1 9:38AM ; [facility] # 2 Complications: Non 01/05/2021 Last Documented On 1 9:38AM ; [facility] # 2 Delivery date: [birth year]/02/1999 01/05/2021 Last Documented On 1 9:38AM ; [facility] # 2 Sex: Female 01/05/2021 Last Documented On 1 9:38AM ; [facility] # 2 Weeks: 40 01/05/2021 Last Documented On 1 9:38AM ; [facility] # 2 Weight: 8 7 01/05/2021 Last Documented On 1 9:38AM ; [facility] #1 Complications None 01/05/2021 Last Documented On 1 9:38AM ; [facility] An HIV test was performed 01/05/2021 Last Documented On 1 9:38AM ; [facility] Elective (s) 0 01/05/2021 Last Documented On 1 9:38AM ; [facility] Never uses condoms with anal sex 021 Last Documented On 1 9:38AM ; [facility] No of miscarriages: 0 01/05/2021 Last Documented On 1 9:38AM ; [facility] No previous STD 01/05/2021 Last Documented On 1 9:38AM ; [facility] No. of Pregnancies: 3 01/05/2021 Last Documented On 1 9:38AM ; [facility] Please list all surgeries None 1 Last Documented On 1 9:38AM ; [facility] Previous live (s) 3 01/05/2021 Last Documented On 1 9:38AM ; [facility] Previous premature delivery(s) 0 021 Last Documented On 1 9:38AM ; [facility] Recent immunization for flu 06/2021 Last Documented On 1 9:38AM ; [facility] Family History Includes: Family History addressed during this encounter Description Last Updated Paternal history of Diabetes 01/05/2021 Last Documented On 1 9:38AM ; [facility] Review of Systems Includes: Review [...] WOMAN - NEW PATIENT GANESH LONG MD [facility] 01/06/20 21 8:56AM 9:41AM Breast Fibrocystic Disease,Screeni ng Malig. Neoplasm Rectum,Normal Female Exam Insurance Includes: Active Insurance Policies Plan Name Member ID Group # Subscriber Relationship Effect tim Dates 1 - [facility] [id number] ALVA DUFF Self Clinical Notes Includes: Clinical Notes from this encounter No Clinical Notes Recorded
--- OUTSIDE RECORDS SUMMARY | 2024-12-01 12:08 | XMS_ITS | Clinical Summary ---
Author Organization [facility] Address [address] [place] [address] Phone Care Team Providers Care Pipe Stem Repairer Name Role Phone GANESH LONG MD Primary Care Provider [phone] Reason for Visit and Chief Complaint * [...] # Subscriber Relationship Effect tim Dates - [facility] [id number] ALVA DUFF Self Clinical Notes Includes: Clinical Notes from this encounter No Clinical Notes Recorded
--- OUTSIDE RECORDS SUMMARY | 2024-12-01 12:08 | XMS_ITS | Clinical Summary ---
Author Organization [facility] Address [address] [place] [address] Phone Care Team Providers Care Software Project Manager Name Role Phone GANESH LONG MD Primary Care Provider [phone] Reason for Visit and Chief Complaint NO [...] Check-Out Time Diagnosis NO SHOW YEFRI JERNIGAN [facility] 05/18/2022 3:54PM 11:59PM Insurance Includes: Active Insurance Policies Plan Name Member ID Group # Subscriber Relationship Effect tim Dates 1 - [facility] [id number] ALVA DUFF Self Clinical Notes Includes: Clinical Notes from this encounter No Clinical Notes Recorded
--- OUTSIDE RECORDS SUMMARY | 2024-12-01 12:08 | XMS_ITS ---
Care Plan - [facility] Created on: December 01, 2024 ALVA DUFF : 1970 Sex: Female Author Organization [facility] Address [address] [place] [address] Phone Care Team Providers Care Vehicle Maintenance Supervisor Name Role Phone ETHAN HOFFMAN, GANESH Waterman Primary Care Provider
--- OUTSIDE RECORDS SUMMARY | 2024-12-01 12:08 | XMS_ITS | Clinical Summary ---
Author Organization [facility] Address [address] [place] [address] Phone Care Team Providers Care Cytogenetic Technologist Name Role Phone GANESH LONG MD Primary Care Provider [phone] Reason for Visit and Chief Complaint [Patient [...] Time Diagnosis [Patient Encounter] GANESH LONG MD [facility] 2 10:08AM 11:59PM Insurance Includes: Active Insurance Policies Plan Name Member ID Group # Subscriber Relationship Effect tim Dates 1 - [facility] [id number] ALVA DUFF Self Clinical Notes Includes: Clinical Notes from this encounter No Clinical Notes Recorded
[2024-12-01 12:09] VITALS: BP 184/71; PULSE 91; RESP 16; TEMP 36.4; O2SAT 99
--- OUTSIDE RECORDS SUMMARY | 2024-12-01 12:09 | XMS_ITS ---
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 Name Role Phone GANESH LONG MD Primary Care Provider [phone] Plan of Treatment Findings Encounter Date She will let us know if she has other problems in the meantime WELL WOMAN - NEW PATIENT with GANESH LONG MD 01/05/2021 Last Documented On 1 9:38AM ; [facility] Ordered follow-up visit 1 ye ar or as needed WELL WOMAN - NEW PATIENT with GANESH LONG MD 01/05/2021 Last Documented On 1 9:38AM ; [facility] Instructions to patient Instructions for patient : B reast Self Exam discussed Last Documented On 1 9:19AM ; [facility] Education and Decision Aids were provided during visit for: STD screening offered and de clined Last Documented On 1 9:19AM ; [facility] Bone Mineral Density Screeni ng guidelines reviewed Last Documented On 1 9:19AM ; [facility] Patient Education: Daily rich cium and vitamin D Last Documented On 1 9:19AM ; [facility] Patient Education: weight be aring exercise Last Documented On 1 9:19AM ; [facility] Colonoscopy screening guidel mendez discussed Last Documented On 1 9:19AM ; [facility] Assessments Includes: Assessments for all patient encounters Findings Encounter Date Fibrocystic disease of breast WELL WOMAN - NEW PATIENT with GANESH LONG MD 01/05/2021 Last Documented On 1 9:38AM ; [facility] NORMAL FEMALE EXAM WELL WOMAN - NEW PATIENT with GANESH LONG MD 01/05/2021 Last Documented On 1 9:38AM ; [facility] Screening Malig. Neoplasm Rectum WELL WO MAN - NEW PATIENT with GANESH LONG MD 01/05/2021 Last Documented On 1 9:38AM ; [facility] Instructions Includes: Instructions for all patient encounters Instructions to patient Instructions for patient : B reast Self Exam discussed Last Documented On 1 9:19AM ; [facility] Education and Decision Aids were provided during visit for: STD screening offered and de clined Last Documented On 1 9:19AM ; [facility] Bone Mineral Density Screeni ng guidelines reviewed Last Documented On 1 9:19AM ; [facility] Patient Education: Daily rich cium and vitamin D Last Documented On 1 9:19AM ; [facility] Patient Education: weight be aring exercise Last Documented On 1 9:19AM ; [facility] Colonoscopy screening guidel mendez discussed Last Documented On 1 9:19AM ; [facility] Medical Equipment - Implanted Devices Includes: Current [...] 01/05/2021 Last Documented On 1 9:38AM ; [facility] Exercising regularly 01/05/2021 Last Documented On 1 9:38AM ; [facility] Current nonsmoker 01/05/2021 Last Documented On 1 9:38AM ; [facility] control is not practiced 1 Last Documented On 1 9:38AM ; [facility] Has not used injectable drugs 01/05/2021 Last Documented On 1 9:38AM ; [facility] Has sex with males only 01/05/2021 Last Documented On 1 9:38AM ; [facility] Have you ever had sex (vaginal or penis in anus or rectum)? 01/05/2021 Last Documented On 1 9:38AM ; [facility] Never a smoker 01/05/2021 Last Documented On 1 9:38AM ; [facility] No consumption of alcohol 01/05/2021 Last Documented On 1 9:38AM ; [facility] No drug use by a sexual partner 01/06/20 Last Documented On 1 9:38AM ; [facility] Not using drugs 01/05/2021 Last Documented On 1 9:38AM ; [facility] Partner has not had a STD in the past ye ar 01/05/2021 Last Documented On 1 9:38AM ; [facility] Patient does not report having sex when she didn't want to 01/05/2021 Last Documented On 1 9:38AM ; [facility] Patient has not had sex unde r the influence of alcohol or drugs in the last year 01/05/2021 Last Documented On 1 9:38AM ; [facility] Sexual partner has not had o ther partners while in relationship with patient 01/05/2021 Last Documented On 1 9:38AM ; [facility] Sexual partner has not had sex with pros titutes 01/05/2021 Last Documented On 1 9:38AM ; [facility] Sexually active with partners in the las t year 01/05/2021 Last Documented On 1 9:38AM ; [facility] Tubal ligation as control 01/06/20 Last Documented On 1 9:38AM ; [facility] Smoking Status Unknown Medical History Includes: Medical History in patient's chart Description Last Updated # 2 Hours in labor: 10 hours ; #21 March 2005 and was repeat section with tubal ligation at [facility] 01/05/2021 Last Documented On 1 9:38AM ; [facility] 3 01/05/2021 Last Documented On 1 9:38AM ; [facility] Last pap smear date 200401/05/2021 Last Documented On 1 9:38AM ; [facility] Para 3 01/05/2021 Last Documented On 1 9:38AM ; [facility] Result: normal 01/05/2021 Last Documented On 1 9:38AM ; [facility] LMP: 11/24/2020 01/05/2021 Last Documented On 1 9:38AM ; [facility] # 1 Anesthesia: Emergency C Section 12/18 Last Documented On 1 9:38AM ; [facility] # 1 Delivery date: 01/27/1997 01/05/2021 Last Documented On 1 9:38AM ; [facility] # 1 Hours in labor 18 01/05/2021 Last Documented On 1 9:38AM ; [facility] # [facility] Sex: Male 01/05/2021 Last Documented On 1 9:38AM ; [facility] # 1 type delivery: C section 01/05/2021 Last Documented On 1 9:38AM ; [facility] # 1 Weeks: 40 01/05/2021 Last Documented On 1 9:38AM ; [facility] # 1 Weight 8 11 01/05/2021 Last Documented On 1 9:38AM ; [facility] # 2 type delivery: Vaginal 01/05/2021 Last Documented On 1 9:38AM ; [facility] # 2 Anesthesia: Epidural 01/05/2021 Last Documented On 1 9:38AM ; [facility] # 2 Complications: Non 01/05/2021 Last Documented On 1 9:38AM ; [facility] # 2 Delivery date: [birth year]02[birth year]1999 01/05/2021 Last Documented On 1 9:38AM ; [facility] # 2 Sex: Female 01/05/2021 Last Documented On 1 9:38AM ; [facility] # 2 Weeks: 40 01/05/2021 Last Documented On 1 9:38AM ; [facility] # 2 Weight: 8 7 01/05/2021 Last Documented On 1 9:38AM ; [facility] #1 Complications None 01/05/2021 Last Documented On 1 9:38AM ; [facility] An HIV test was performed 01/05/2021 Last Documented On 1 9:38AM ; [facility] Elective (s) 0 01/05/2021 Last Documented On 1 9:38AM ; [facility] Never uses condoms with anal sex 021 Last Documented On 1 9:38AM ; [facility] No of miscarriages: 0 01/05/2021 Last Documented On 1 9:38AM ; [facility] No previous STD 01/05/2021 Last Documented On 1 9:38AM ; [facility] No. of Pregnancies: 3 01/05/2021 Last Documented On 1 9:38AM ; [facility] Please list all surgeries None 1 Last Documented On 1 9:38AM ; [facility] Previous live (s) 3 01/05/2021 Last Documented On 1 9:38AM ; [facility] Previous premature delivery(s) 0 021 Last Documented On 1 9:38AM ; [facility] Recent immunization for flu 06/2021 Last Documented On 1 9:38AM ; [facility] Family History Includes: Family History in patient's chart Description Last Updated Paternal history of Diabetes 01/05/2021 Last Documented On 1 9:38AM ; [facility] Review of Systems Review of [...] Subscriber Relationship Effect tim Dates 1 - [facility] [id number] ALVA DUFF Self Clinical Notes Includes: Signed Clinical Notes starting from 10/08/2022 No Clinical Notes Recorded
--- NOTE | 2024-12-01 12:14 | ED_ITS ---
HPI - Female Genitourinary General Chief complaint: Urogenital-Female Stated complaint: Urinary Problem Time Seen by Provider: 12/01/24 12:14 Source: patient, RN notes reviewed and old records reviewed Mode of arrival: ambulatory Limitations: no limitations History of Present Illness HPI Narrative: 54 year old female who presents to express care today with complaints of urinary tract symptoms which include urinary frequency and burning and has a pulling sensation at end of her stream for the past 2 days.Patient reports that she has some lower back discomfort, denies any suprapubic pain. Patient reports no sayra sea or vomiting, states no fevers, chills or sweat, denies any concern for STD exposure. Patient reports that she has been taking Tylenol for her discomfort. MD elicited complaint: UTI Pertinent past history: other (uti, kidney stone 2005) Onset (ago): day(s) (2) Location of symptoms: urethra and low back Severity: moderate Quality of pain: burning and aching Vaginal discharge: none Vaginal bleeding: none Treatment prior to arrival: acetaminophen Related Data Allergies Allergy/AdvReac Type Severity Reaction Status Date / Time codeine Allergy Severe Swelling Verified 08/11/24 15:01 of Lip/Tongue/Throat Review of Systems Review of Systems: CONSTITUTIONAL: Denies fever, chills, or sweats. CARDIOVASCULAR: Denies chest pain, palpitations, or edema. RESPIRATORY: Denies cough or dyspnea. GASTROINTESTINAL: Denies abdominal pain, nausea, vomiting, or diarrhea. GENITOURINARY: Reports dysuria, frequency, urgency. Denies flank pain or hematuria. SKIN: Denies rash or itching. MUSCULOSKELETAL: Reports low back pain or myalgia. Denies CVA tenderness NEUROLOGIC: Denies headache All systems reviewed & are unremarkable except as noted in HPI and below PMFSH Past Medical History Medical History Kidney stone Urinary tract infection Surgical History Surgical History Previous section x2 Social History Social History Smoking status: Never smoker Alcohol intake: current Alcohol use details: social Substance use type: does not use Living arrangements: with family Gender identity (if verbalized by the patient): Female Comments At time of signature, agree with nursing past medical, surgical, social and family history. There is no relevant family history pertinent to the presenting complaint Exam Narrative: GENERAL: Well-appearing, well-nourished, and in no acute distress. HEAD: Normocephalic, atraumatic. NECK: Supple. no lymphadenopathy CHEST: Clear to auscultation. No respiratory distress.no cough noted SAO2 99% on room air HEART: Regular rate and rhythm. No murmur heard. Normal peripheral pulses. ABDOMEN: Soft, nontender, nondistended, normal active bowel sounds. No CVA tenderness Reports burning with urination and pulling sensation at end of stream with frequency, low back discomfort. EXTREMITIES: Normal range of motion. No edema. SKIN: Warm, dry, no rash. NEURO: No focal deficits. Alert and oriented x3. Course Course Emergency Course: Patient is aware of diagnosis, understands and agrees to treatment plan.? Anticipatory guidance given.? Patient agrees to follow-up as directed and is aware of reasons to seek care at the emergency department. Portions of this record may have been created with voice recognition software Level of Care: Express Care Visit Vital Signs Vital signs: Vital Signs Temperature 36.4 C L 12/01/24 12:09 Pulse Rate 91 12/01/24 12:09 Respiratory Rate 16 12/01/24 12:09 Blood Pressure 184/71 H 12/01/24 12:09 Pulse Oximetry 99 12/01/24 12:09 Oxygen Delivery Room Air 12/01/24 12:09 Temperature 36.4 C L 12/01/24 12:09 Pulse Rate 91 12/01/24 12:09 Respiratory Rate 16 12/01/24 12:09 Blood Pressure 184/71 H 12/01/24 12:09 Pulse Oximetry 99 12/01/24 12:09 Oxygen Delivery Room Air 12/01/24 12:09 MDM - Female Genitourinary MDM Narrative Medical decision making narrative: Exam findings and UA show no acute concerns or changes; patient is non-toxic appearing and is in no distress.? Patient is appropriate for outpatient treatment and follow-up. Differential Diagnosis Differential diagnosis: Likely urinary tract infection, cystitis and other (dysuria, low back pain) Medical Records Attestation: I reviewed the patient's medical records. Lab Data Attestation: I reviewed the patient's lab results. Lab results narrative: urine dip: glucose negative, bilirubin negative, ketone trace my specific gravity 1.025, blood trace enteric, pH 6.5, protein negative, urobilinogen 0.2, nitrate negative, leukocyte trace Labs: Lab Results 12/01/24 Range/Units 12:18 POC Urine Color Tea colored POC Urine Clarity Clear POC Urine pH 6.5 POC Ur Specif [place] 1.025 POC Urine Protein Negative (Negative) POC Ur Glucose (UA) Negative (Negative) POC Urine Ketones Trace (Negative) POC Urine Blood Trace (Negative) POC Urine Nitrite Negative (Negative) POC Urine Bilirubin Negative (Negative) POC Urine Urobilinogen 0.2 POC U Leukocyte Esteras Trace (Negative) reviewed Critical Care Time Critical Care Time Critical Care Time: No Discharge Plan Discharge Clinical Impression: Urinary tract infection Qualifiers: Urinary tract infection type: site unspecified Hematuria presence: with hematuria Qualified Code(s): N39.0 - Urinary tract infection, site not specified ; R31.9 - Hematuria, unspecified Patient Disposition: Home, Self-Care Condition: Stable Instructions: Antibiotic Form, Urinary Tract Infection in Women (DC) Additional Instructions: Increase fluids especially cranberry juice and water Avoid caffeine and carbonated beverages Antibiotic as directed Tylenol/ibuprofen for pain or fever Follow-up with her primary care provider if further problems or concerns Recheck if you have fever over 101, nausea and vomiting. If your symptoms persist, change or worsen significantly before you can contact your personal physician then please, without delay, go to the emergency dep artment for further evaluation. Follow-up with PCP in 7-10 days or sooner if needed Follow up with PCP soon in regards to your blood pressure which is elevated above threshold for referral. Blood pressure above 120/80 may indicate pre- hypertension. 184/71 manual recheck 160/90 Patient Language: Salvadorean Prescriptions: New sulfamethoxazole-trimethoprim [Bactrim DS] 800-160 mg tablet 1 tablet PO Q12H Qty: 14 0RF Follow-up/Referrals: PHYSICIAN,CALCULUS TUTOR [Primary Care Provider] - Time of Disposition: 12:56 Quality Nico Coma Scale Eyes: Open Verbal: Oriented and Alert Motor: Follows Commands Nico Coma Total Score: 15
[2024-12-01 12:20] LABS: EDUAAPPEAR Clear; EDUABILI Negative (Negative); EDUABLOOD Trace (Negative); EDUACOLOR1 Tea Colored; EDUAGLUCOSE Negative (Negative); EDUAKETONE Trace (Negative); EDUALEUKO Trace (Negative); EDUANITRATE Negative (Negative); EDUAPH 6.5; EDUAPROTEIN Negative (Negative); EDUASPGRAVITY 1.025; EDUAUROBILI 0.2
== END 2024-12-01 13:04 | disposition home or self-care (01) ==
PROVIDERS: Emergency Provider Registered Nurse
DX: N39.0 Urinary tract infection, site not specified (principal); B96.20 Unspecified Escherichia coli [E. coli] as the cause of diseases classified elsewhere; R31.9 Hematuria, unspecified
CPT/HCPCS: 81003; 87086; 87186; 99213; G0463